=== PATIENT | male | born 1980 | race Caucasian/White ===

== ENCOUNTER 2016-08-10 11:15 | Emergency (ER) | payer OTHER ==
[~2016-08-10] VITALS: Ht 177.8 cm; Wt 107.6 kg
[2016-08-10] MEDS ORDERED: NS 500 ML IV ONE (12:00)
[2016-08-10] MEDS ORDERED: diphenhydrAMINE INJ 50MG/ML VIAL (J1200) IV ONE ×2 (12:00→13:45)
[2016-08-10] MEDS ORDERED: FAMOTIDINE 20 MG TAB PO ONE (12:00)
[2016-08-10] MEDS ORDERED: methylPREDNISolone INJ 125 MG/2 ML VIAL (J2930) IV ONE (12:00)
[2016-08-10 12:17] LABS: BASO # 0.1 K/mm3 (0.0-0.2); BASO % 0.8 % (0.0-1.0); EOS # 0.3 K/mm3 (0.0-0.50); EOS % 3.8 % (0.0-3.0); LARGE UNSTAINED CELL # 0.1 K/mm3 (0.0-0.4); LARGE UNSTAINED CELL % 1.3 % (0.0-4.0); LYMPH # 1.5 K/mm3 (1.5-4.5); LYMPH % 18.7 % (24.0-44.0); MEAN CORPUSCULAR HEMOGLOBIN 33.3 pg (27.0-33.0); MEAN CORPUSCULAR HGB CONC 35.3 g/dl (32.0-36.5); MEAN CORPUSCULAR VOLUME 94.3 fl (80.0-96.0); MONO # 0.6 K/mm3 (0.0-0.8); MONO % 7.3 % (0.0-5.0); NEUTROPHILS # 5.1 K/mm3 (1.8-7.7); PLATELET COUNT, AUTOMATED 266 k/mm3 (150-450); RED CELL DISTRIBUTION WIDTH 12.8 % (11.5-14.5); WHITE BLOOD COUNT 7.5 K/mm3 (4.0-10.0)
[2016-08-10 12:49] LABS: ALBUMIN 3.9 GM/DL (3.2-5.2); ALBUMIN/GLOBULIN RATIO 1.15 (1.00-1.93); ALKALINE PHOSPHATASE 48 U/L (45-117); ALT/SGPT 31 U/L (12-78); ANION GAP 4 MEQ/L (8-16); AST/SGOT 17 U/L (15-37); BILIRUBIN,DIRECT < 0.1 MG/DL (0.0-0.2); BILIRUBIN,TOTAL 0.5 MG/DL (0.2-1.0); BLOOD UREA NITROGEN 11 MG/DL (7-18); CALCIUM LEVEL 8.6 MG/DL (8.5-10.1); CARBON DIOXIDE LEVEL 26 MEQ/L (21-32); CHLORIDE LEVEL 108 MEQ/L (98-107); CREATININE FOR GFR 1.01 MG/DL (0.70-1.30); GLOMERULAR FILTRATION RATE > 60.0 (>60); GLUCOSE, FASTING 93 MG/DL (70-105); POTASSIUM SERUM 3.9 MEQ/L (3.5-5.1); SODIUM LEVEL 138 MEQ/L (136-145); TOTAL PROTEIN 7.3 GM/DL (6.4-8.2)
[2016-08-10 13:04] LABS: ERYTHROCYTE SEDIMENTATION RATE 4 mm/hr (0-15)
[2016-08-10] MEDS ORDERED: PRED20TA PO (15:37)
[2016-08-10] MEDS ORDERED: BENA25CA4 PO (15:37)
[2016-08-10 15:44] VITALS: BP 131/79
== END 2016-08-10 15:50 | disposition home or self-care (01) ==
LOC: M ED 12:26
DX: L50.9 Urticaria, unspecified (principal); T78.40XA Allergy, unspecified, initial encounter; F17.210 Nicotine dependence, cigarettes, uncomplicated; Z88.0 Allergy status to penicillin
CPT/HCPCS: 80048; 80076; 81001; 85025; 85652; 86140; 87040; 96374; 96375; 99283; J1200; J2930

== ENCOUNTER 2016-08-11 13:36 | Emergency (ER) | payer OTHER ==
[~2016-08-11] VITALS: Ht 177.8 cm; Wt 108.0 kg
[~2016-08-11 13:36] MED LIST: BENA25CA4 PO; PRED20TA PO
[2016-08-11 13:37] VITALS: BP 136/76
== END 2016-08-11 15:42 | disposition home or self-care (01) ==
LOC: M ED 15:11
DX: R22.0 Localized swelling, mass and lump, head (principal); Z51.89 Encounter for other specified aftercare; F17.200 Nicotine dependence, unspecified, uncomplicated; Z88.1 Allergy status to other antibiotic agents

== ENCOUNTER 2017-05-28 18:16 | Emergency (ER) | payer OTHER ==
[2017-05-28] MEDS: diphenhydrAMINE INJ 50MG/ML VIAL (J1200) IV (19:15)
[2017-05-28] MEDS: FAMOTIDINE IV BAG 20 MG in APPROPRIATE DILUENT 1 EA IV (19:15)
[2017-05-28] MEDS: methylPREDNISolone INJ 125 MG/2 ML VIAL (J2930) IV (19:44)
[2017-05-28] MEDS: NYSTATIN 100,000 UNITS/GM TOPICAL PWD 15 GM TOP (20:30)
== END 2017-05-28 21:12 | disposition home or self-care (01) ==
LOC: M ED 18:16
DX: B35.6 Tinea cruris (principal); L50.1 Idiopathic urticaria; F17.200 Nicotine dependence, unspecified, uncomplicated; Z88.0 Allergy status to penicillin; Z79.899 Other long term (current) drug therapy
CPT/HCPCS: J1200

== ENCOUNTER 2022-08-05 12:54 | Emergency (ER) | payer OTHER ==
[~2022-08-05] VITALS: Ht 177.8 cm; Wt 118.4 kg
[~2022-08-05 12:54] MED LIST changes: +CETI10TA PO; +NYST1POW9 TOP; +PEPC1TAB5 PO
[2022-08-05] MEDS ORDERED: methylPREDNISolone 125MG 2ML VIAL IM ONE (17:35)
[2022-08-05] MEDS ORDERED: PRED20TA PO (17:35)
[2022-08-05] MEDS ORDERED: ZEAS2POW4 TP (17:35)
[2022-08-05] MEDS ORDERED: ZEAS2POW4 TOP (17:47)
[2022-08-05 17:52] VITALS: BP 122/72; TEMP 98; O2SAT 98
== END 2022-08-05 17:53 | disposition home or self-care (01) ==
LOC: M ED 12:54
DX: B35.6 Tinea cruris (principal); L30.9 Dermatitis, unspecified; Z88.0 Allergy status to penicillin; Z79.52 Long term (current) use of systemic steroids; Z79.899 Other long term (current) drug therapy
CPT/HCPCS: 96372; 99283; J2930